=== PATIENT | male | born 1960 | race Caucasian/White ===

== ENCOUNTER 2021-06-26 13:27 | Inpatient (IN) | payer OTHER ==
[~2021-06-26] VITALS: Ht 172.7 cm; Wt 120.2 kg
[~2021-06-26 13:27] MED LIST: AZITHROMYCIN 2250 MG PO; CIPROFLOXACIN250 M2 PO; ELIQUIS5 MG PO; GLIPIZIDE XL5 MG PO; GLUCOPHAGE500 MG PO; HYDROCHLOROTHIA25 M2 PO; LEVSIN0.125 MG PO; LISINOPRIL PO; LISINOPRIL20 MG PO; MULTIVITAMINS1 EAC7 PO; PERCOCET 5-3251 EACH PO; PHENAZOPYRIDIN200 M2 PO; PHENERGAN 25 MG25 M1 PO; PREDNISONE 10 M10 MG PO; PRILOSEC 20 MG20 MG PO; TAMSULOSIN HCL0.4 M1 PER TUBE; TAMSULOSIN HCL0.4 M1 PO; TYLENOL325 MG PO; VENTOLIN HFA 1818 GM INH; VICODIN 5-5001 EACH PO
[2021-06-26 13:50] VITALS: BP 151/73
[2021-06-26] MEDS ORDERED: FARXIGA10 MG PO (13:57)
[2021-06-26] MEDS ORDERED: NEURONTIN 300M300 M2 PO (13:57)
[2021-06-26] MEDS ORDERED: ROSUVASTATIN CA10 MG PO (13:58)
[2021-06-26] MEDS ORDERED: PROTONIX40 M2 PO (13:58)
[2021-06-26] MEDS ORDERED: TRULICITY1.5 MG/0.5 SUBQ (13:59)
[2021-06-26] MEDS ORDERED: TRELEGY ELLIPT1 EACH INH (13:59)
[2021-06-26 14:22] LABS: ABSOLUTE BASOPHILS 0.1 thou/uL (0.0-0.2); ABSOLUTE EOSINOPHILS 0.2 thou/uL (0.0-0.7); ABSOLUTE LYMPHOCYTES 1.3 thou/uL (0.8-5.3); ABSOLUTE MONOCYTES 0.6 thou/uL (0.0-1.2); ABSOLUTE NEUTROPHILS 3.6 thou/uL (1.6-8.1); BASOPHILS 1.1 %; EOSINOPHILS 4.2 %; HEMOGLOBIN 16.1 gm/dL (14.0-18.0); LYMPHOCYTES 22.2 %; MCH 31.6 pg (26.0-34.0); MCHC 32.8 g/dL (28.0-37.0); MCV 96.3 fL (80.0-100.0); MONOCYTES 10.8 %; MPV 8.7 fl. (7.2-11.1); NUCLEATED RBCS 0 /100WBC; PLATELET COUNT* 136 thou/uL (150-400); POLYS 61.7 %; RBC 5.09 mil/uL (4.50-6.00); RDW-CV 14.7 % (10.5-14.5); WBC 5.9 thou/uL (4.0-11.0)
[2021-06-26 14:41] LABS: CALCIUM 9.1 mg/dL (8.5-10.1); POTASSIUM 3.9 mmol/L (3.5-5.1)
[2021-06-26 14:45] LABS: ALBUMIN 3.1 g/dL (3.4-5.0); TOTAL BILIRUBIN 0.4 mg/dL (<0.1-1.0); TOTAL PROTEIN 6.6 g/dL (6.4-8.2)
[2021-06-26 17:53] LABS: BE 3.1 mmol/L (-2 to +3)
[2021-06-26 17:56] LABS: PCO2 75.8 mmHg (35.0-45.0); PO2 57.1 mmHg (75.0-100.0); pH 7.263 (7.340-7.450)
[2021-06-26 18:40] VITALS: BP 105/65
[2021-06-26 20:54] LABS: BE 2.3 mmol/L (-2 to +3); PO2 94.1 mmHg (75.0-100.0)
[2021-06-26 20:56] LABS: PCO2 76.9 mmHg (35.0-45.0); pH 7.247 (7.340-7.450)
[2021-06-26 22:31] VITALS: BP 146/76
[2021-06-26 23:41] LABS: INFLUENZA A ANTIGEN Negative (Negative); INFLUENZA B ANTIGEN Negative (Negative)
[2021-06-26 23:59] LABS: BE 2.3 mmol/L (-2 to +3); PO2 83.1 mmHg (75.0-100.0)
[2021-06-27] VITALS (71 sets, daily range): BP systolic 79–171; BP diastolic 43–105
[2021-06-27 00:01] LABS: PCO2 75.7 mmHg (35.0-45.0); pH 7.251 (7.340-7.450)
[2021-06-27 08:53] LABS: ALBUMIN 2.9 g/dL (3.4-5.0); CALCIUM 9.1 mg/dL (8.5-10.1); CREATININE 2.2 mg/dL (0.6-1.3); MAGNESIUM 2.4 mg/dL (1.8-2.4); TOTAL BILIRUBIN 0.3 mg/dL (<0.1-1.0); TOTAL PROTEIN 6.5 g/dL (6.4-8.2)
[2021-06-27 08:55] LABS: BE 6.4 mmol/L (-2 to +3); PO2 79.6 mmHg (75.0-100.0); pH 7.308 (7.340-7.450)
[2021-06-27 08:56] LABS: POTASSIUM 5.2 mmol/L (3.5-5.1)
[2021-06-27 08:58] LABS: PCO2 73.7 mmHg (35.0-45.0)
--- NOTE | 2021-06-27 15:19 | EKG ---
[place] [address] ELECTROCARDIOGRAM REPORT Name: ANDREASUNCION WEN Room: [address] ADM IN M.R.#: [id number] Admission: 06/26/21 Attend Phys: Sarah Ingram, Discharge: Date of : 58 Date of Service: 06/26/21 1351 Report #: [id number] THIS REPORT FOR: //name// [facility] ED Test Date: 2021-06-26 Test Time: 13:51:56 Pat Name: ASUNCION ANDRE Department: Room: [facility] Gender: M Weight Clerk: JOEL : 1960 Requested By: John Bowles Order Number: [id number] MD: Ed Montilla Measurements Intervals [place] Rate: 102 P: 63 LA: 134 QRS: 57 QRSD: 75 T: 61 QT: 322 QTc: 420 Interpretive Statements Sinus tachycardia Ventricular premature complex Baseline wander in lead(s) V2 Compared to ECG 02/01/2016 16:54:34 Ventricular premature complex(es) now present Myocardial infarct finding no longer present Electronically Signed On 06-27-2021 15:18:49 SENIOR PREMIUM AUDITOR by Ed Montilla [email or web address] <ELECTRONICALLY SIGNED> By: Ed Montilla MD, FACC 06/27/21 1518 1351 1351 Ed Montilla MD, FACC /EPI
[2021-06-27 16:17] LABS: HEMATOCRIT 46.4 % (42.0-52.0); HEMOGLOBIN 15.2 gm/dL (14.0-18.0); MCH 31.8 pg (26.0-34.0); MCHC 32.7 g/dL (28.0-37.0); MCV 97.2 fL (80.0-100.0); RBC 4.78 mil/uL (4.50-6.00); RDW-CV 14.9 % (10.5-14.5); WBC 7.2 thou/uL (4.0-11.0)
[2021-06-27 16:26] LABS: BE 4.4 mmol/L (-2 to +3); pH 7.351 (7.340-7.450)
[2021-06-27 16:27] LABS: CREATININE 1.9 mg/dL (0.6-1.3); POTASSIUM 4.7 mmol/L (3.5-5.1)
[2021-06-27 16:32] LABS: PCO2 59.2 mmHg (35.0-45.0)
[2021-06-28] VITALS (52 sets, daily range): BP systolic 95–163; BP diastolic 47–116
[2021-06-28 01:26] LABS: HEMATOCRIT 45.4 % (42.0-52.0); HEMOGLOBIN 14.9 gm/dL (14.0-18.0); MCH 31.9 pg (26.0-34.0); MCHC 32.7 g/dL (28.0-37.0); MCV 97.6 fL (80.0-100.0); MPV 9.1 fl. (7.2-11.1); RBC 4.66 mil/uL (4.50-6.00); RDW-CV 14.8 % (10.5-14.5); WBC 10.4 thou/uL (4.0-11.0)
[2021-06-28 01:49] LABS: ALBUMIN 2.8 g/dL (3.4-5.0); CALCIUM 8.5 mg/dL (8.5-10.1); CREATININE 1.6 mg/dL (0.6-1.3); MAGNESIUM 2.3 mg/dL (1.8-2.4); POTASSIUM 4.1 mmol/L (3.5-5.1); TOTAL BILIRUBIN 0.4 mg/dL (<0.1-1.0)
[2021-06-28 04:56] LABS: BE 2.3 mmol/L (-2 to +3); PO2 85.9 mmHg (75.0-100.0); pH 7.355 (7.340-7.450)
[2021-06-28 04:58] LABS: PCO2 53.4 mmHg (35.0-45.0)
[2021-06-29] VITALS (21 sets, daily range): BP systolic 105–145; BP diastolic 56–82
[2021-06-29 03:22] LABS: HEMATOCRIT 43.3 % (42.0-52.0); HEMOGLOBIN 14.4 gm/dL (14.0-18.0); MCHC 33.2 g/dL (28.0-37.0); MCV 96.3 fL (80.0-100.0); MPV 8.6 fl. (7.2-11.1); RBC 4.5 mil/uL (4.50-6.00); RDW-CV 14.8 % (10.5-14.5); WBC 7.2 thou/uL (4.0-11.0)
[2021-06-29 03:42] LABS: ALBUMIN 2.6 g/dL (3.4-5.0); CALCIUM 8.2 mg/dL (8.5-10.1); CREATININE 1.7 mg/dL (0.6-1.3); MAGNESIUM 2.3 mg/dL (1.8-2.4); POTASSIUM 3.6 mmol/L (3.5-5.1); TOTAL BILIRUBIN 0.3 mg/dL (<0.1-1.0); TOTAL PROTEIN 5.8 g/dL (6.4-8.2)
--- NOTE | 2021-06-29 13:30 | 2DMMODE ---
[place] [address] 2 D/M-MODE ECHOCARDIOGRAM Name: ASUNCION ANDRE Room: [address] ADM IN .R.#: [id number] Admission: 06/26/21 Attend Phys: Sarah Ingram, Discharge: Date of : 58 Date of Service: 06/29/21 1330 Report #: [id number] THIS REPORT FOR: cc: Wilbur Dueñas MS, Marshall MS Blick,Sloan Sosa MD [facility] ~ APPROVED REPORT Study performed: 06/29/2021 10:20:45 EXAM: Comprehensive 2D, Doppler, and color-flow Echocardiogram Patient Location: In-Patient Room #: 002 Status: routine BSA: 2.30 HR: 96 bpm BP: 139/75 mmHg Rhythm: NSR Other Information Study Quality: Good Indications hypoxia 2D Dimensions IVSd: 12.53 (7-11mm) LVOT Diam: 22.08 (18-24mm) LVDd: 49.11 mm PWd: 11.02 (7-11mm) Ascending Ao: 31.87 (22-36mm) LVDs: 21.33 (25-40mm) Aortic Root: 38.15 mm Volumes Left Atrial Volume (Systole) LA ESV Index: 19.40 mL/m2 Aortic Valve AoV Peak Trevor.: 1.88 m/s AO Peak Gr.: 14.17 mmHg LVOT Max P.80 mmHg AO Mean Gr.: 7.92 mmHg LVOT Mean P.18 mmHg LVOT Max V: 1.40 m/s AO V2 VTI: 29.55 cm LVOT Mean V: 0.95 m/s PERCY (VTI): 3.22 cm2 LVOT V1 VTI: 24.87 [place] [address] 2 D/M-MODE ECHOCARDIOGRAM Name: ASUNCION ANDRE Room: [address] IN .R.#: [id number] Admission: 06/26/21 Attend Phys: Sarah Ingram, Discharge: Date of : 58 Date of Service: 06/29/21 1330 Report #: [id number] Mitral Valve E/A Ratio: 1.45 MV Decel. Time: 213.41 ms MV E Max Trevor.: 1.14 m/s MV PHT: 61.89 ms MVA (PHT): 3.55 cm2 TDI E/Lateral E': 16.29 E/Medial E': 11.40 Medial E' Trevor.: 0.10 m/s Lateral E' Trevor.: 0.07 m/s Pulmonary Valve PV Peak Trevor.: 1.04 m/s PV Peak Gr.: 4.32 mmHg Left Ventricle The left ventricle is normal size. There is normal LV segmental wall motion. Mild concentric left ventricular hypertrophy. Left ventricular systolic function is normal. The left ventricular ejection fraction is within the normal range. LVEF is 65-70%. The left ventricular diastolic function is normal. Right Ventricle The right ventricle is normal size. The right ventricular systolic function is normal. Atria The left atrium size is normal. The right atrium size is normal. Aortic Valve Mild aortic valve sclerosis. trace aortic regurgitation is present. There is no aortic valvular stenosis. Mitral Valve The mitral valve is normal in structure. There is no mitral valve regurgitation noted. No evidence of mitral valve stenosis. Tricuspid Valve The tricuspid valve is normal in structure. Unable to assess PA pressure. Trace tricuspid regurgitation. Pulmonic Valve The pulmonary valve is normal in structure. There is no pulmon[place] [address] 2 D/M-MODE ECHOCARDIOGRAM Name: ASUNCION ANDRE Room: [address] IN [facility]#: [id number] Admission: 06/26/21 Attend Phys: Sarah Ingram, Discharge: Date of : 58 Date of Service: 06/29/21 1330 Report #: [id number] Great Vessels The aortic root is normal in size. IVC is not well visualized. Pericardium There is no pericardial effusion. <Conclusion> Mild concentric left ventricular hypertrophy. LVEF is 65-70%. Mild aortic valve sclerosis. <ELECTRONICALLY SIGNED> By: Sloan Urena MD, FACC 06/29/21 1330 29 29 Sloan Urena MD, FACC /INF
[2021-06-30 04:20] LABS: HEMATOCRIT 46.8 % (42.0-52.0); HEMOGLOBIN 15.2 gm/dL (14.0-18.0); MCH 31.3 pg (26.0-34.0); MCHC 32.4 g/dL (28.0-37.0); MCV 96.6 fL (80.0-100.0); MPV 9.1 fl. (7.2-11.1); RBC 4.84 mil/uL (4.50-6.00); RDW-CV 14.9 % (10.5-14.5); WBC 8.5 thou/uL (4.0-11.0)
[2021-06-30 04:26] VITALS: BP 140/68
[2021-06-30 04:41] LABS: ALBUMIN 2.7 g/dL (3.4-5.0); CALCIUM 8.4 mg/dL (8.5-10.1); CREATININE 1.4 mg/dL (0.6-1.3); MAGNESIUM 2.3 mg/dL (1.8-2.4); POTASSIUM 3.6 mmol/L (3.5-5.1); TOTAL BILIRUBIN 0.3 mg/dL (<0.1-1.0); TOTAL PROTEIN 5.8 g/dL (6.4-8.2)
[2021-06-30 09:55] VITALS: BP 132/79
[2021-06-30 12:45] VITALS: BP 132/77
[2021-06-30 17:02] VITALS: BP 128/78
[2021-06-30 20:00] VITALS: BP 146/73
[2021-07-01 01:12] VITALS: BP 133/77
[2021-07-01 06:12] VITALS: BP 142/72
[2021-07-01 08:00] VITALS: BP 116/70
[2021-07-01] MEDS ORDERED: IPRAT-ALBUT 0.5-3 ML INH (08:13)
[2021-07-01] MEDS ORDERED: PREDNISONE 10 M10 M1 PO (08:13)
[2021-07-01] MEDS ORDERED: CEFDINIR300 MG PO (08:13)
[2021-07-01] MEDS ORDERED: DOXYCYCLINE 10100 MG PO (08:13)
[2021-07-01 12:03] VITALS: BP 116/70
== END 2021-07-01 13:00 | disposition home or self-care (01) | DRG 871 ==
LOC: M.ERS 13:27 → M.TBA-ER 14:47 → M.ICU 14:47 → M.TBA-ER 18:42 → M.ICU 06-27 00:15 → M.2W 06-29 22:19
PROVIDERS: Pediatrics; Physician Assistant; ADMIT Internal Medicine; ATTEND Internal Medicine
PROC: 5A09357 Assistance with Respiratory Ventilation, Less than 24 Consecutive Hours, Continuous Positive Airway Pressure (ICD-10-PCS; principal; 2021-06-26)
PROC: 5A09357 Assistance with Respiratory Ventilation, Less than 24 Consecutive Hours, Continuous Positive Airway Pressure (ICD-10-PCS; 2021-06-27)
PROC: 5A09357 Assistance with Respiratory Ventilation, Less than 24 Consecutive Hours, Continuous Positive Airway Pressure (ICD-10-PCS; 2021-06-28)
PROC: 05HD33Z Insertion of Infusion Device into Right Cephalic Vein, Percutaneous Approach (ICD-10-PCS; 2021-06-29)
PROC: 5A09357 Assistance with Respiratory Ventilation, Less than 24 Consecutive Hours, Continuous Positive Airway Pressure (ICD-10-PCS; 2021-06-29)
PROC: 5A09357 Assistance with Respiratory Ventilation, Less than 24 Consecutive Hours, Continuous Positive Airway Pressure (ICD-10-PCS; 2021-06-30)
DX: A41.9 Sepsis, unspecified organism (principal); N17.0 Acute kidney failure with tubular necrosis; J15.6 Pneumonia due to other Gram-negative bacteria; J96.22 Acute and chronic respiratory failure with hypercapnia; J96.21 Acute and chronic respiratory failure with hypoxia; Z68.41 Body mass index [BMI] 40.0-44.9, adult; Z20.822 Contact with and (suspected) exposure to COVID-19; K21.9 Gastro-esophageal reflux disease without esophagitis; E78.5 Hyperlipidemia, unspecified; J43.9 Emphysema, unspecified; F17.210 Nicotine dependence, cigarettes, uncomplicated; E11.65 Type 2 diabetes mellitus with hyperglycemia; E66.01 Morbid (severe) obesity due to excess calories; Z87.442 Personal history of urinary calculi; Z90.49 Acquired absence of other specified parts of digestive tract; Z79.82 Long term (current) use of aspirin; Z79.899 Other long term (current) drug therapy